=== PATIENT | female | born 1960 | race Caucasian/White ===

== ENCOUNTER 2016-09-29 11:48 | Emergency (ER) | payer MEDICAID ==
[~2016-09-29] VITALS: Ht 170.2 cm; Wt 94.0 kg
[2016-09-29 12:33] VITALS: BP 148/94
[2016-09-29] MEDS ORDERED: KETOROLAC 30 MG/1 ML IM ONE (13:00)
[2016-09-29] MEDS ORDERED: DIAZEPAM 5 MG TABLET PO ONE (13:00)
[2016-09-29] MEDS ORDERED: DIAZEPAM 5 MG TABLET ONE (13:35)
[2016-09-29] MEDS ORDERED: KETOROLAC 30 MG/1 ML ONE (13:35)
== END 2016-09-29 14:34 | disposition home or self-care (01) ==
LOC: ED 14:33
DX: S32.049A Unspecified fracture of fourth lumbar vertebra, initial encounter for closed fracture (principal); S39.012A Strain of muscle, fascia and tendon of lower back, initial encounter; E11.9 Type 2 diabetes mellitus without complications; M47.896 Other spondylosis, lumbar region; M54.30 Sciatica, unspecified side; X50.1XXA Overexertion from prolonged static or awkward postures, initial encounter; Y93.89 Activity, other specified; Y92.89 Other specified places as the place of occurrence of the external cause; Y99.8 Other external cause status
CPT/HCPCS: 72110; 96372; 99284; J1885

== ENCOUNTER 2016-10-01 15:38 | Emergency (ER) | payer MEDICAID ==
[~2016-10-01] VITALS: Ht 170.2 cm; Wt 92.5 kg
[2016-10-01 15:48] VITALS: BP 152/97
[2016-10-01] MEDS ORDERED: HYDROmorphone 1 MG/ML, 1ML ONE (17:26)
[2016-10-01] MEDS ORDERED: ONDANSETRON ODT 4 MG ONE (17:27)
[2016-10-01] MEDS ORDERED: ONDANSETRON ODT 4 MG PO ONE (17:30)
[2016-10-01] MEDS ORDERED: HYDROmorphone 1 MG/ML, 1ML IM ONE (17:30)
== END 2016-10-01 18:28 | disposition home or self-care (01) ==
LOC: ED 16:28
DX: M54.16 Radiculopathy, lumbar region (principal); E11.9 Type 2 diabetes mellitus without complications
CPT/HCPCS: 96372; 99283; J1170; J7512; Q0162

== ENCOUNTER → 2016-10-28 | Outpatient (CLI) | payer MEDICAID | END | disposition home or self-care (01) | LOC: CFH 07:37 | PROVIDERS: ATTEND Orthopaedic Surgery Orthopaedic Surgery of the Spine | DX: M51.36 Other intervertebral disc degeneration, lumbar region (principal); M48.07 Spinal stenosis, lumbosacral region; M51.27 Other intervertebral disc displacement, lumbosacral region; M47.896 Other spondylosis, lumbar region | CPT/HCPCS: 72148 ==

== ENCOUNTER 2017-11-06 06:20 | Inpatient (IN) | payer MEDICAID ==
[~2017-11-06] VITALS: Ht 170.2 cm; Wt 92.1 kg
[2017-11-06] MEDS ORDERED: METF1000 PO (07:16)
[2017-11-06] MEDS ORDERED: ATOR20TA9 PO (07:17)
[2017-11-06] MEDS ORDERED: SODIUM CHLORIDE FLUSH 10ML SYR IVF ONE ×2 (08:30→09:00)
[2017-11-06] MEDS ORDERED: SODIUM CHLORIDE 0.9% 1,000ML IVBOLUS ONE ×2 (08:30→09:00)
[2017-11-06 09:59] LABS: MEAN CORPUSCULAR HEMOGLOBIN 29.8 pg (27.0-34.8); MEAN CORPUSCULAR HGB CONC 34.4 g/dL (32.4-35.8); MEAN CORPUSCULAR VOLUME 86.6 fL (80-100); MEAN PLATELET VOLUME 9.2 fL (7.4-10.4); PLATELET COUNT 198 x10^3/uL (130-400); RED BLOOD COUNT 4.85 x10^6/uL (3.82-5.3); RED CELL DISTRIBUTION WIDTH 13.5 % (9.6-15.2)
[2017-11-06 10:09] LABS: ALBUMIN 3.6 g/dL (3.4-5.0); ANION GAP 11 mmol/L (5-15); CALCIUM 8.5 mg/dL (8.5-10.1); CHLORIDE 99 mmol/L (98-107); CREATININE 0.72 mg/dL (0.55-1.02)
[2017-11-06 10:21] LABS: BASOPHILS # (AUTO) 0.03 x10^3/uL (0-0.1); BASOPHILS % (AUTO) 0 % (0-1); EOSINOPHILS # (AUTO) 0.05 x10^3/uL (0-0.4); EOSINOPHILS % (AUTO) 0 % (1-7); LYMPHOCYTES # (AUTO) 1.55 x10^3/uL (1-3.4); LYMPHOCYTES % (AUTO) 9 % (22-44); MD SCAN; MONOCYTES # (AUTO) 0.81 x10^3/uL (0.2-0.8); MONOCYTES % (AUTO) 5 % (2-9); NEUTROPHILS # (AUTO) 14.45 x10^3/uL (1.8-6.8); NEUTROPHILS % (AUTO) 86 % (42-75)
[2017-11-06] MEDS ORDERED: CEFTRIAXONE PMX 1GM/50ML 50 ML IV ONE (10:30)
[2017-11-06] MEDS ORDERED: LIDOCAINE-MPF 1%, 5ML ONE (10:34)
[2017-11-06] MEDS ORDERED: CEFTRIAXONE PMX 1GM/50ML 50 ML ONE (10:52)
[2017-11-06] MEDS ORDERED: VISIPAQUE 270 MG/ML, 50ML BOTTLE ONE (11:20)
[2017-11-06] MEDS ORDERED: ONDANSETRON ODT 4 MG ONE (11:37)
[2017-11-06] MEDS ORDERED: ONDANSETRON ODT 4 MG PO ONE (12:00)
[2017-11-06 12:24] VITALS: BP 142/87
[2017-11-06] MEDS ORDERED: DOCUSATE 100 MG CAPSULE PO PRN (14:00)
[2017-11-06] MEDS ORDERED: DEXTROSE 4 GM TAB.CHEW PO PRN (14:00)
[2017-11-06] MEDS ORDERED: GLUCAGON 1 MG IM PRN (14:00)
[2017-11-06] MEDS ORDERED: morphine SULFATE 10 MG/ML, 1ML IVPush PRN (14:00)
[2017-11-06] MEDS ORDERED: ONDANSETRON 2MG/ML, 2ML IVPush PRN (14:00)
[2017-11-06] MEDS ORDERED: DEXTROSE 50%, 50ML SYRINGE IVPush PRN (14:00)
[2017-11-06] MEDS: ENOXAPARIN 40 MG/0.4 ML SQ SCH (14:29)
[2017-11-06] MEDS: HYDROcodone/APAP 5/325 TABLET PO PRN ×2 (14:29→18:45)
[2017-11-06] MEDS: NICOTINE 14MG/24 HR PATCH.TD24 TD SCH (14:29)
[2017-11-06 14:30] VITALS: BP 142/87
[2017-11-06] MEDS: NS + 20MEQ KCL 1,000 ML IV SCH (16:58)
[2017-11-06] MEDS: INSULIN LISPRO 100 UNITS/ML, PEN SQ-INSULIN SCH ×2 (16:59→21:19)
[2017-11-06 19:52] VITALS: BP 115/78
[2017-11-06] MEDS: SODIUM CHLORIDE FLUSH 10ML SYR IVF SCH (21:00)
[2017-11-06] MEDS: metFORMIN 500 MG TABLET PO SCH (21:17)
[2017-11-06] MEDS: ATORVASTATIN 20 MG TABLET PO SCH (21:18)
[2017-11-06] MEDS: ACETAMINOPHEN 325 MG TABLET PO PRN (21:25)
[2017-11-07] MEDS: NS + 20MEQ KCL 1,000 ML IV SCH (01:35)
[2017-11-07] MEDS: HYDROcodone/APAP 5/325 TABLET PO PRN (01:36)
[2017-11-07 01:38] VITALS: BP 113/77
[2017-11-07 06:06] LABS: BASOPHILS # (AUTO) 0.04 x10^3/uL (0-0.1); BASOPHILS % (AUTO) 0 % (0-1); EOSINOPHILS # (AUTO) 0.09 x10^3/uL (0-0.4); EOSINOPHILS % (AUTO) 1 % (1-7); LYMPHOCYTES % (AUTO) 17 % (22-44); MD NO; MEAN CORPUSCULAR HEMOGLOBIN 29.6 pg (27.0-34.8); MEAN CORPUSCULAR HGB CONC 33.9 g/dL (32.4-35.8); MEAN CORPUSCULAR VOLUME 87.4 fL (80-100); MEAN PLATELET VOLUME 9.4 fL (7.4-10.4); MONOCYTES # (AUTO) 0.78 x10^3/uL (0.2-0.8); MONOCYTES % (AUTO) 7 % (2-9); NEUTROPHILS # (AUTO) 8.58 x10^3/uL (1.8-6.8); NEUTROPHILS % (AUTO) 75 % (42-75); PLATELET COUNT 167 x10^3/uL (130-400); RED BLOOD COUNT 4.42 x10^6/uL (3.82-5.3); RED CELL DISTRIBUTION WIDTH 13.4 % (9.6-15.2)
[2017-11-07 06:18] LABS: ANION GAP 6 mmol/L (5-15); CALCIUM 8.1 mg/dL (8.5-10.1); CHLORIDE 104 mmol/L (98-107); CREATININE 0.53 mg/dL (0.55-1.02)
[2017-11-07] MEDS ORDERED: IBUPROFEN 200 MG TABLET PO PRN (07:30)
[2017-11-07] MEDS: metFORMIN 500 MG TABLET PO SCH ×2 (08:42→20:23)
[2017-11-07] MEDS: CLINDAMYCIN PMX 600MG/50ML 50 ML IV SCH ×2 (08:42→16:17)
[2017-11-07] MEDS: SODIUM CHLORIDE FLUSH 10ML SYR IVF SCH ×2 (08:43→21:04)
[2017-11-07] MEDS: SUMATRIPTAN 25 MG TABLET PO PRN (08:43)
[2017-11-07] MEDS: INSULIN LISPRO 100 UNITS/ML, PEN SQ-INSULIN SCH ×4 (08:43→21:00)
[2017-11-07] MEDS: SENNA/DOCUSATE TABLET PO SCH (08:43)
[2017-11-07 09:25] VITALS: BP 116/79
[2017-11-07] MEDS: ENOXAPARIN 40 MG/0.4 ML SQ SCH (13:47)
[2017-11-07 14:30] VITALS: BP 137/92
[2017-11-07] MEDS: ACETAMINOPHEN 325 MG TABLET PO PRN (16:16)
[2017-11-07] MEDS: NICOTINE 14MG/24 HR PATCH.TD24 TD SCH (16:19)
[2017-11-07] MEDS: OXYcodone IR 5MG TABLET PO PRN (18:26)
[2017-11-07] MEDS ORDERED: SUMATRIPTAN 25 MG TABLET PO ONE (18:30)
[2017-11-07] MEDS: ATORVASTATIN 20 MG TABLET PO SCH (20:23)
[2017-11-07 21:19] VITALS: BP 111/76
[2017-11-07] MEDS ORDERED: ENOXAPARIN 150 MG/ML SQ ONE (23:30)
[2017-11-08] MEDS: CLINDAMYCIN PMX 600MG/50ML 50 ML IV SCH ×2 (00:40→14:35)
[2017-11-08] MEDS: OXYcodone IR 5MG TABLET PO PRN ×4 (00:46→23:03)
[2017-11-08 02:52] VITALS: BP 94/61
[2017-11-08] MEDS: INSULIN LISPRO 100 UNITS/ML, PEN SQ-INSULIN SCH ×4 (07:35→21:15)
[2017-11-08 07:49] VITALS: BP 125/80
[2017-11-08] MEDS ORDERED: ENOXAPARIN 100 MG/ML SQ SCH (08:30)
[2017-11-08] MEDS: SENNA/DOCUSATE TABLET PO SCH (09:30)
[2017-11-08] MEDS: SODIUM CHLORIDE FLUSH 10ML SYR IVF SCH ×2 (09:30→20:48)
[2017-11-08] MEDS: metFORMIN 500 MG TABLET PO SCH ×2 (09:30→21:05)
[2017-11-08] MEDS: ACETAMINOPHEN 325 MG TABLET PO PRN (11:43)
[2017-11-08] MEDS: APIXABAN 5 MG TABLET PO SCH ×2 (11:44→21:06)
[2017-11-08] MEDS ORDERED: WARFARIN MODERAT DOSE PROTOCOL XX SCH (12:00)
[2017-11-08] MEDS ORDERED: LORazepam 1MG TABLET ONE (13:21)
[2017-11-08] MEDS ORDERED: LORazepam 1MG TABLET PO ONE (13:30)
[2017-11-08] MEDS: NICOTINE 14MG/24 HR PATCH.TD24 TD SCH (14:00)
[2017-11-08 14:30] VITALS: BP 133/82
[2017-11-08] MEDS: CLINDAMYCIN 150 MG CAPSULE PO SCH ×2 (17:33→23:00)
[2017-11-08] MEDS ORDERED: CALCIUM CARBONATE 500 MG TAB.CHEW ONE (19:11)
[2017-11-08 19:16] VITALS: BP 125/81
[2017-11-08] MEDS ORDERED: CALCIUM CARBONATE 500 MG TAB.CHEW PO PRN (19:30)
[2017-11-08] MEDS ORDERED: MAALOX/HYOSCYAMINE/LIDOCAINE 45 ML BTL PO ONE (21:00)
[2017-11-08] MEDS: ATORVASTATIN 20 MG TABLET PO SCH (21:06)
[2017-11-08] MEDS: POLYETHYLENE GLYCOL 17 GM PACKET PO PRN (21:14)
[2017-11-09 01:33] VITALS: BP 120/80
[2017-11-09] MEDS: CLINDAMYCIN 150 MG CAPSULE PO SCH ×4 (05:42→23:43)
[2017-11-09 07:11] VITALS: BP 129/79
[2017-11-09] MEDS: INSULIN LISPRO 100 UNITS/ML, PEN SQ-INSULIN SCH ×4 (08:26→21:01)
[2017-11-09] MEDS: APIXABAN 5 MG TABLET PO SCH (08:27)
[2017-11-09] MEDS: metFORMIN 500 MG TABLET PO SCH ×2 (08:27→21:00)
[2017-11-09] MEDS: SENNA/DOCUSATE TABLET PO SCH (08:28)
[2017-11-09] MEDS: OXYcodone IR 5MG TABLET PO PRN ×3 (08:33→22:18)
[2017-11-09] MEDS: SODIUM CHLORIDE FLUSH 10ML SYR IVF SCH ×2 (09:00→21:02)
[2017-11-09 12:34] VITALS: BP 127/86
[2017-11-09] MEDS: NICOTINE 14MG/24 HR PATCH.TD24 TD SCH (15:25)
[2017-11-09] MEDS: RIVAROXABAN 15 MG TABLET PO SCH (17:41)
[2017-11-09 20:31] VITALS: BP 114/76
[2017-11-09] MEDS: ATORVASTATIN 20 MG TABLET PO SCH (20:59)
[2017-11-09] MEDS: POLYETHYLENE GLYCOL 17 GM PACKET PO PRN (22:18)
[2017-11-10 02:01] VITALS: BP 115/73
[2017-11-10] MEDS: CLINDAMYCIN 150 MG CAPSULE PO SCH (05:33)
[2017-11-10] MEDS: OXYcodone IR 5MG TABLET PO PRN (05:33)
[2017-11-10] MEDS ORDERED: IBUP-1484 PO (07:38)
[2017-11-10] MEDS ORDERED: RIVA15TA PO (07:38)
[2017-11-10] MEDS ORDERED: CLIN150C14 PO (07:47)
[2017-11-10 07:59] VITALS: BP 113/75
[2017-11-10] MEDS ORDERED: IBUPROFEN 200 MG TABLET PO PRN (08:00)
[2017-11-10] MEDS: RIVAROXABAN 15 MG TABLET PO SCH (08:04)
[2017-11-10] MEDS: metFORMIN 500 MG TABLET PO SCH (08:04)
[2017-11-10] MEDS: INSULIN LISPRO 100 UNITS/ML, PEN SQ-INSULIN SCH (08:05)
[2017-11-10] MEDS: SENNA/DOCUSATE TABLET PO SCH (08:05)
[2017-11-10] MEDS: SODIUM CHLORIDE FLUSH 10ML SYR IVF SCH (08:06)
[2017-11-10] MEDS: SUMATRIPTAN 25 MG TABLET PO PRN (09:00)
[2017-11-15] MEDS ORDERED: APIXABAN 5 MG TABLET PO SCH (09:00)
== END 2017-11-10 10:33 | disposition home or self-care (01) | DRG 872 ==
LOC: ED 11:12 → EDIP 11:13 → ED 11:49 → 3NE 11:57 → DCLOUNGE 11-10 10:28
PROVIDERS: ADMIT Internal Medicine Pulmonary Disease; ATTEND Family Medicine
PROC: 04HK33Z Insertion of Infusion Device into Right Femoral Artery, Percutaneous Approach (ICD-10-PCS; principal; 2017-11-06)
DX: A41.9 Sepsis, unspecified organism (principal); I82.621 Acute embolism and thrombosis of deep veins of right upper extremity; E11.9 Type 2 diabetes mellitus without complications; E78.5 Hyperlipidemia, unspecified; F17.200 Nicotine dependence, unspecified, uncomplicated; L03.114 Cellulitis of left upper limb; G89.29 Other chronic pain; N61.0 Mastitis without abscess; R65.20 Severe sepsis without septic shock; M54.9 Dorsalgia, unspecified
CPT/HCPCS: 36415; 36569; 71250; 76604; 76937; 77001; 80048; 82040; 82962; 83605; 83735; 84145; 85025; 87040; 96365; J0696; J1650; J3480; Q0162; Q9966; C1751; J1815; J7030